=== PATIENT | female | born 1950 | race Two or more races ===

== ENCOUNTER 2018-12-18 13:02 | Emergency (ER) | payer OTHER ==
--- NOTE | 2018-12-18 13:12 | PDOC ---
Rapid Medical Evaluation Time Seen by Provider: 12/18/18 13:10 Medical Evaluation: 12/18/18 13:11 HPI: L shoulder pain after a fall at home did not hit head PE: No gross deficits Moves finger ORDERS: x-ray L shoulder Discharge Disposition - Diagnosis Injury of left shoulder - Referrals - Patient Instructions - Post Discharge Activity
[2018-12-18 13:14] VITALS: BP 163/96; PULSE 78; TEMP 97.3; BMI 36.6
[2018-12-18] MEDS ORDERED: ONDANSETRON *ODT* 4 MG TABLET SL ONE (14:05)
--- NOTE | 2018-12-18 14:07 | PDOC ---
History of Present Illness - General Chief Complaint: Injury Stated Complaint: LT. ARM PAIN/ FALL Time Seen by Provider: 12/18/18 13:10 History Source: Patient Exam Limitations: No Limitations Past History - Travel Traveled outside of the country in the last 30 days: No Close contact w/someone who was outside of country & ill: No - Past Medical History Allergies/Adverse Reactions: Allergies Allergy/AdvReac Type Severity Reaction Status Date / Time shellfish derived Allergy Verified 12/18/18 13:14 Home Medications: Ambulatory Orders Docusate Sodium [Colace -] 100 mg PO BID #14 capsule 12/18/18 Ondansetron [Zofran Odt -] 4 mg SL TID #10 od.tablet 12/18/18 Oxycodone HCl/Acetaminophen [Percocet 5-325 mg Tablet] 1 tab PO Q6H #12 tablet MDD 4 12/18/18 COPD: No Diabetes: Yes HTN: Yes Other medical history: BRAIN TUMOR - Psycho Social/Smoking Cessation Hx Smoking History: Never smoked Hx Alcohol Use: No Drug/Substance Use Hx: No Review of Systems - Review of Systems Able to Perform ROS?: Yes Comments:: 12/18/18 16:53 CONSTITUTIONAL: Absent: fever, chills, diaphoresis, generalized weakness, malaise, loss of appetite MUSCULOSKELETAL: Present: L shoulder pain Absent: myalgia, joint swelling SKIN: Absent: rash, itching, pallor HEMATOLOGIC/IMMUNOLOGIC: Absent: easy bleeding, easy bruising, lymphadenopathy, frequent infections ENDOCRINE: Absent: unexplained weight gain, unexplained weight loss, heat intolerance, cold intolerance NEUROLOGIC: Absent: headache, focal weakness or paresthesias, dizziness, unsteady gait, seizure, mental status changes, bladder or bowel incontinence PSYCHIATRIC: Absent: anxiety, depression, suicidal or homicidal ideation, hallucinations. Is the patient limited Azeri proficient: No *Physical Exam - Vital Signs Last Vital Signs Temp Pulse Resp BP Pulse Ox 97.3 F L 78 16 163/96 96 12/18/18 13:11 12/18/18 13:11 12/18/18 13:11 12/18/18 13:11 12/18/18 13:11 - Physical Exam Comments: 12/19/18 16:57 GENERAL: The patient is awake, alert, and fully oriented, in no acute distress. HEAD: Normal with no signs of trauma. EYES: Pupils equal, round and reactive to light, extraocular movements intact, sclera anicteric, conjunctiva clear. EXTREMITIES: patient guarding left shoulder, unable to move it at this time. 2 + distal pulses radial pulse bilaterally. Patient able to move fingers. PMS grossly intact in the left arm. Normal range of motion at all other joints, no edema. NEUROLOGICAL: Normal speech, normal gait. PSYCH: Normal mood, normal affect. SKIN: Warm, Dry, normal turgor, no rashes or lesions noted. Medical Decision Making - Medical Decision Making 12/18/18 16:58 The patient is a 68-year-old female with past medical history presents to the ER status post mechanical trip and fall today. She states she tripped bathroom and landed on her left shoulder. Denies hitting her head or losing consciousness. She states that the fall happened at 11 AM. She notes that she is unable to move her left arm due to the pain at this time. Patient is right- hand dominant. Denies fevers, chills, lightheadedness, weakness, loss of consciousness, head trauma, numbness and tingling to the affected extremity. A/P: Proximal humerus fracture On exam patient guarding left shoulder, unable to move it at this time. 2+ distal pulses radial pulse bilaterally. Patient able to move fingers. PMS grossly intact in the left arm. X-ray shows a completely fractured proximal humerus with the head of the humerus completely displaced from the shaft of the humerus. The ball of the humerus sitting within the glenoid space. Consulted with Dr. Wong. Recommend putting patient in sling, treating the pain and will have the patient follow-up in the office on Sunday for further evaluation and management. Patient is neurologically intact, PMS intact. Discharge home. Patient explained that she is follow-up with orthopedics and that this most likely needs surgery to fix. I discussed the physical exam findings, ancillary test results and final diagnoses with the patient. I answered all of the patient's questions. The patient was satisfied with the care received and felt comfortable with the discharge plan and treatment plan. The Patient agrees to follow up with the primary care physician/specialist within 24-72 hours. Return precautions were given. Discharge - Discharge Information Problems reviewed: Yes Clinical Impression/Diagnosis: Proximal humerus fracture Qualifiers: Encounter type: initial encounter Fracture type: closed Fracture morphology: unspecified fracture morphology Laterality: left Qualified Code(s): S42.202A - Unspecified fracture of upper end of left humerus, initial encounter for closed fracture Condition: Stable Disposition: HOME - Admission No - Additional Discharge Information Prescriptions: Docusate Sodium [Colace -] 100 mg PO BID #14 capsule Ondansetron [Zofran Odt -] 4 mg SL TID #10 od.tablet Oxycodone HCl/Acetaminophen [Percocet 5-325 mg Tablet] 1 tab PO Q6H #12 tablet MDD 4 - Follow up/Referral Referrals: Frankie Wong MD [Staff Physician] - - Patient Discharge Instructions Patient Printed Discharge Instructions: How to Use a Sling Additional Instructions: You broke your proximal humerus (shoulder) Wear the sling until you see orthopedics Call Dr. Wong today to make an appointment for Sunday Take the percocet every 6hours as needed for pain. Do not drink or drive after taking the medication Take the zofran every 8 hours as needed for nausea Take the Colace as directed to prevent constipation (the percocet can make you constipated) Return to the ER for any new or worsening symptoms Se rompi el hmero proximal (hombro) Use la honda hasta que adrián ortopedia Llame al Dr. Wong hoy para hacer mika domo para el viernes. [place] el percocet cada 6 horas segn sea necesario para el dolor. No tome ni maneje despus de andrea el medicamento. [place] el zofran cada 8 horas segn sea necesario para las nuseas. [place] el Colace segn las indicaciones para prevenir el estreimiento (el percocet puede provocarle estreimiento) Regrese a la lynda de emergencias por cualquier sntoma nuevo o que empeore Print Language: COMOR[place] - Post Discharge Activity
[2018-12-18] MEDS ORDERED: ONDANSETRON *ODT* 4 MG TABLET ONE (14:23)
== END 2018-12-18 15:21 | disposition home or self-care (01) ==
LOC: JERFT 13:02
DX: S42.202A Unspecified fracture of upper end of left humerus, initial encounter for closed fracture (principal); E11.9 Type 2 diabetes mellitus without complications; I10 Essential (primary) hypertension; C71.9 Malignant neoplasm of brain, unspecified; W01.0XXA Fall on same level from slipping, tripping and stumbling without subsequent striking against object, initial encounter; Y92.002 Bathroom of unspecified non-institutional (private) residence as the place of occurrence of the external cause; Z91.013 Allergy to seafood
CPT/HCPCS: 73030-TC-LT-FY; 99283-25; Q0162

== ENCOUNTER 2024-03-08 15:16 | Emergency (ER) | payer OTHER ==
[2024-03-08 15:32] VITALS: BP 103/80; PULSE 97; RESP 18; TEMP 98.2; BMI 30.8
[2024-03-08 16:11] LABS: VENOUS BASE EXCESS 3.2 mmol/L (-2-2); VENOUS O2 SATURATION 45.8 % (70-80); VENOUS PCO2 56.7 mmHg (38-52); VENOUS PH 7.346 (7.310-7.410)
[2024-03-08 16:14] LABS: BASO % 0.7 % (0-2.0); EOS % 1.2 % (0-4.5); HEMATOCRIT 40.4 % (32.4-45.2); LYMPH % 25.1 % (8-40); MCH 29.9 pg (25.7-33.7); MCHC 32.2 g/dl (32.0-36.0); MEAN CELL VOLUME 92.9 fl (80-96); MEAN PLT VOLUME 9.4 fl (7.5-11.1); MONO % 6.2 % (3.8-10.2); NEUT % 66.8 % (42.8-82.8); PLATELET COUNT 247 10^3/uL (134-434); RBC 4.35 M/mm3 (3.60-5.2); RDW 15.1 % (11.6-15.6); WHITE BLOOD COUNT 8.3 K/mm3 (4.0-10.0)
[2024-03-08] MEDS: LACTATED RINGERS SOLUTION 1000 ML INFUS.BAG IV ONE (16:18)
[2024-03-08 16:35] LABS: CHLORIDE 92 mmol/L (98-107); POTASSIUM 4.3 mmol/L (3.5-5.1); SODIUM 131 mmol/L (136-145)
[2024-03-08 16:38] LABS: CALCIUM 9.4 mg/dL (8.5-10.1)
[2024-03-08 16:39] LABS: ALBUMIN 3.4 g/dl (3.4-5.0); ANION GAP 7 mmol/L (4-13); CO2 31 mmol/L (21-32)
[2024-03-08 16:41] LABS: SGPT/ALT 14 U/L (13-61)
[2024-03-08 16:42] LABS: PHOSPHOROUS 3.2 mg/dL (2.5-4.9); SGOT/AST 18 U/L (15-37)
[2024-03-08 16:43] LABS: BILIRUBIN,TOTAL 0.3 mg/dL (0.2-1); TOT PROT 7.8 g/dl (6.4-8.2)
[2024-03-08 16:44] LABS: ALK PHOS 110 U/L (45-117)
[2024-03-08 16:48] LABS: GLUCOSE,RANDOM 506 mg/dL (74-106)
[2024-03-08] MEDS ORDERED: INSULIN REGULAR HUMAN 100 UNITS/ML *VIAL ONE (16:53)
[2024-03-08] MEDS: INSULIN REGULAR HUMAN 100 UNITS/ML *VIAL SQ ONE (17:05)
[2024-03-08 17:10] LABS: PH,URINE 5.5 (5.0-8.0); URINE APPEARANCE CLEAR; URINE BILIRUBIN NEGATIVE (NEGATIVE); URINE COLOR YELLOW; URINE GLUCOSE (UA) 3+ (NEGATIVE); URINE KETONE NEGATIVE (NEGATIVE); URINE LEUK ESTERASE NEGATIVE (NEGATIVE); URINE NITRITE NEGATIVE (NEGATIVE); URINE PROTEIN NEGATIVE (NEGATIVE); URINE UROBILINOGEN 0.2 mg/dL (0.2-1.0)
== END 2024-03-08 18:47 | disposition home or self-care (01) ==
LOC: JER 15:16
DX: E11.65 Type 2 diabetes mellitus with hyperglycemia (principal); R11.0 Nausea
CPT/HCPCS: 36415; 80053; 81003; 82010; 82803; 82962; 83735; 84100; 84484; 85025; 87086; 93005; 93010; 99284-25